=== PATIENT | female | born 1990 | race Caucasian/White ===

== ENCOUNTER 2019-09-25 13:50 | Emergency (ER) | payer MEDICAID ==
[~2019-09-25] VITALS: Ht 149.9 cm; Wt 96.6 kg
[2019-09-25 14:05] VITALS: Ht 149.9 cm; Wt 96.6 kg
[2019-09-25 16:50] VITALS: BP 108/50
== END 2019-09-25 16:50 | disposition home or self-care (01) ==
LOC: ED 13:50
DX: R51 Headache (principal); R42 Dizziness and giddiness; H57.89 Other specified disorders of eye and adnexa; H53.149 Visual discomfort, unspecified; Z88.0 Allergy status to penicillin
CPT/HCPCS: J0780; J1885